=== PATIENT | female | born 1940 | race Caucasian/White ===

== ENCOUNTER 2017-05-16 08:24 | Day surgery (SDC) | payer OTHER ==
[~2017-05-16 08:24] MED LIST: ALTACE10 MG PO; ASPIRIN EC81 MG PO; FOLIC ACID1 MG PO; METROPOLOL PO; NABUMETONE500 MG PO; OSTERA TABLET1 EACH PO; PEPCID20 MG PO; PERCOCET 5/3251 TAB PO
== END 2017-05-16 17:40 | disposition home or self-care (01) ==
LOC: CIR.AMB 08:24
DX: N30.10 Interstitial cystitis (chronic) without hematuria (principal)

== ENCOUNTER 2017-06-25 08:20 | Outpatient (CLI) | payer OTHER | END 2017-06-25 08:27 | disposition home or self-care (01) | LOC: RAD 08:20 | DX: M20.11 Hallux valgus (acquired), right foot (principal) ==

== ENCOUNTER 2017-09-11 07:38 | Outpatient (CLI) | payer OTHER | END 2017-09-11 07:42 | disposition home or self-care (01) | LOC: RAD 07:38 | DX: M20.11 Hallux valgus (acquired), right foot (principal) ==

== ENCOUNTER 2024-09-05 08:15 | Outpatient (CLI) | payer OTHER | END 2024-09-05 08:18 | disposition home or self-care (01) | LOC: TOM 08:15 | DX: Z12.11 Encounter for screening for malignant neoplasm of colon (principal) ==